=== PATIENT | male | born 1960 | race Caucasian/White ===

== ENCOUNTER 2020-10-23 04:23 | Inpatient (IN) | payer OTHER ==
[~2020-10-23] VITALS: Ht 175.3 cm; Wt 112.9 kg
[2020-10-23] MEDS: VITAMIN D PO SCH (09:00)
[2020-10-23] MEDS ORDERED: IBUP-1131 PO (14:18)
[2020-10-23] MEDS ORDERED: CETI10TA18 PO (14:18)
[2020-10-23] MEDS ORDERED: ALBU0.63 NEB (14:18)
[2020-10-23] MEDS ORDERED: TYLENOL #3 PO ONE ×2 (14:18→14:30)
[2020-10-23] MEDS ORDERED: ONDA8TAB16 PO (14:18)
[2020-10-23] MEDS ORDERED: AZEL137S4 (14:18)
[2020-10-23] MEDS ORDERED: PROM25TA10 PO (14:18)
[2020-10-23] MEDS ORDERED: LUBI24CA7 PO (14:18)
[2020-10-23] MEDS ORDERED: FAMO40TA4 PO (14:18)
[2020-10-23] MEDS ORDERED: CHOL100011 PO (14:18)
[2020-10-23] MEDS ORDERED: PARO20TA4 PO (14:18)
[2020-10-23] MEDS ORDERED: [UNRECOGNIZED DRUG - CODE] PO (14:18)
[2020-10-23] MEDS ORDERED: PROP10TA PO (14:18)
[2020-10-23] MEDS ORDERED: KETO5DRO27 OP (14:18)
[2020-10-23] MEDS ORDERED: NITR0.4T26 SL (14:18)
[2020-10-23] MEDS ORDERED: BUSP10TA PO (14:18)
[2020-10-23] MEDS ORDERED: DICL100G29 TP (14:18)
[2020-10-23] MEDS ORDERED: ASPI-929 PO (14:18)
[2020-10-23] MEDS ORDERED: CLOP75TA PO (14:18)
[2020-10-23] MEDS ORDERED: BUDE10.2 IH (14:18)
[2020-10-23] MEDS ORDERED: EPIN0.3A3 IJ (14:18)
[2020-10-23] MEDS: TRILEPTAL PO SCH (14:35)
[2020-10-23] MEDS: BUSPAR PO SCH ×2 (14:35→21:13)
[2020-10-23 15:03] VITALS: BP 151/100
--- NOTE | 2020-10-23 15:15 | NUR ---
GMAS: PLEASE SEE PAPER COPY IN PT'S CHART FOR FULL ASSESSMENT AND SCORING. Addendum: 10/23/20 at 1520 by Franchesca LANDA Amended: Links added.
--- NOTE | 2020-10-23 15:16 | NUR ---
MMSE: PLEASE SEE PAPER COPY IN PT'S CHART FOR FULL ASSESSMENT AND SCORING. Addendum: 10/23/20 at 1520 by Franchesca LANDA Amended: Links added.
--- NOTE | 2020-10-23 15:20 | NUR ---
BIOPSYCHOSOCIAL: PLEASE SEE PAPER COPY IN PT'S CHART FOR FULL ASSESSMENT. Addendum: 10/23/20 at 1520 by Franchesca LANDA Amended: Links added.
[2020-10-23] MEDS ORDERED: VENTOLIN HFA IH PRN (15:30)
[2020-10-23] MEDS ORDERED: NITROSTAT SL SCH (15:30)
[2020-10-23] MEDS ORDERED: PHENERGAN PO PRN (15:30)
[2020-10-23] MEDS ORDERED: VITAMIN D PO SCH (15:30)
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
--- NOTE | 2020-10-23 16:26 | PRM.CONS ---
Consultation Reason for Consult: Reason for Consultation: Medical management History of Present Illness History of Patient Comments 60-year-old male Being admitted to behavioral health unit for management of psych issues/suicidal thoughts. We were asked to see the patient who has past medical history of coronary artery disease, chronic back pain, asthma,? Hypertension, asthma, allergies. Patient also has chronic back issues, the main complaint now is back pain from lying in bed for a long time in the emergency room. Denies chest pain nausea vomiting abdominal pain. Denies fever or chills. Vitals & Lab Blood pressure 140/90, heart rate 70, respiratory 14, temperature 98 Head and neck normocephalic atraumatic Neck is supple no JVD Heart S1-S2 regular Abdomen soft nontender bowel sounds present Neuro awake alert moving extremities Psych unable to assess Extremities no clubbing cyanosis Review of Systems Constitutional: No: Fever, Chills Eyes: No: Pain, Vision change ENT: No: Ear pain, Ear discharge Respiratory: No: Cough, Shortness of breath Cardiovascular: No: Chest Pain, Palpitations Gastrointestinal: No: Nausea, Vomiting Genitourinary: No Dysuria, No Frequency Musculoskeletal: back pain; No: neck pain Skin: No: Jaundice Neurological: No: Weakness, Numbness Allergies: Coded Allergies: Sulfa (Sulfonamide Antibiotics) (Verified Allergy, Severe, Blisters, 10/23/20) bupropion (Verified Allergy, Severe, Blisters, 10/23/20) duloxetine (Verified Allergy, Severe, Blisters, 10/23/20) fluticasone (Verified Allergy, Severe, Blisters, 10/23/20) black pepper (Verified Adverse Reaction, Severe, 10/23/20) "STOMACH LOCKS UP" chocolate flavor (Verified Adverse Reaction, Severe, 10/23/20) "KNOTS MY STOMACH UP" ketorolac (Verified Adverse Reaction, Severe, 10/23/20) "I HAVE OUTBURTST" cinnamon (Verified Adverse Reaction, Unknown, 10/23/20) STATES IT LOCKS HIS STOMACK UP gabapentin (Verified Adverse Reaction, Unknown, 10/23/20) "JERKING AND DROP THINGS" tramadol (Verified Adverse Reaction, Unknown, 10/23/20) "I HAVE OUTBURST" Scheduled Aspirin (Aspirin Ec), 1 TAB PO DAILY Azelastine Hcl (Azelastine Hcl), 1 SPR NA BID, (Reported) Budesonide/Formoterol Fumarate (Symbicort 160-4.5 Mcg Inhaler), 1 PUFF IH BID, (Reported) Buspirone Hcl (Buspirone Hcl), 2 TAB PO TID, (Reported) Cetirizine Hcl (Cetirizine Hcl), 1 TAB PO DAILY, (Reported) Cholecalciferol (Vitamin D3) (Vitamin D3), 1,000 UNITS PO DAILY24, (Reported) Clopidogrel Bisulfate (Clopidogrel), 1 TAB PO DAILY, (Reported) Diclofenac Sodium (Diclofenac Sodium), 1 APPLIC TP BID, (Reported) Famotidine (Famotidine), 1 TAB PO HS, (Reported) Ketotifen Fumarate (Ketotifen Fumarate), 1 DROP OP BID, (Reported) Lubiprostone (Amitiza), 1 CAP PO BID, (Reported) Nitroglycerin (Nitroglycerin), 1 TAB SL PRN, (Reported) Oxcarbazepine (Oxcarbazepine), 2 TAB PO DAILY24, (Reported) Paroxetine Hcl (Paroxetine Hcl), 1 TAB PO HS, (Reported) Propranolol Hcl (Propranolol Hcl), 1 TAB PO HS, (Reported) Scheduled PRN Albuterol Sulfate (Albuterol Sulfate), 1 VIAL NEB Q4HR PRN for SHORTNESS OF BREATH, (Reported) Epinephrine (Epinephrine), 0.3 MG IJ PRN PRN for SEVERE ALLERGIC REACTIONS, (Reported) Ibuprofen (Ibuprofen), 800 MG PO TID PRN for PAIN, (Reported) Ondansetron (Ondansetron Odt), 8 MG PO Q6HR PRN for NAUSEA AND VOMITING, (Reported) Promethazine Hcl (Promethazine Hcl), 25 MG PO Q6HR PRN for NAUSEA AND VOMITING, (Reported) Assessment/Plan Assessment/Plan Plan Assessment and plan Coronary artery disease, stable Hypertension, will review and restart home meds, patient is on propranolol? Asthma continue with bronchodilators Allergies continue with allergy medications Chronic back pain, restart home meds PTSD Suicidal thoughts, management as per behavioral health specialist Will review and continue home meds Thank you for consulting us We will follow the patient with you as needed ANAND BRYSON MD Oct 23, 2020 16:26
[2020-10-23] MEDS ORDERED: ZOFRAN ODT PO PRN (16:30)
[2020-10-23] MEDS ORDERED: ZYPREXA ZYDIS SL PRN (17:00)
--- NOTE | 2020-10-23 19:35 | NUR ---
PRN MEDICATION PT REQUESTED PRN MEDICATION FOR PAIN. PRN MORPHINE 15MG WAS ADMINISTERED WITH PRN ZOFRAN 4MG.
[2020-10-23] MEDS: MORPHINE SULFATE PO PRN (19:36)
[2020-10-23] MEDS: ZOFRAN ODT SL PRN (19:36)
[2020-10-23 20:50] VITALS: BP 127/92
[2020-10-23] MEDS: ZADITOR OP SCH (21:00)
[2020-10-23] MEDS ORDERED: PAXIL PO SCH (21:00)
[2020-10-23] MEDS: SYMBICORT 160-4.5 MCG INHALER IH SCH (21:00)
[2020-10-23] MEDS: AMITIZA PO SCH (21:13)
[2020-10-23] MEDS: INDERAL PO SCH (21:13)
[2020-10-23] MEDS: PEPCID PO SCH (21:13)
[2020-10-23] MEDS: ATARAX PO PRN (22:19)
[2020-10-23] MEDS: MOTRIN PO PRN (22:20)
--- NOTE | 2020-10-23 22:20 | NUR ---
PRN MEDICATION PT REQUESTED PRN PAIN MEDICATION FOR PAIN. PRN MOTRIN 800MG WAS ADMINISTERED.
--- NOTE | 2020-10-23 22:20 | NUR ---
PRN MEDICATION PT REQUESTED PRN MEDICATION FOR ANXIETY. PRN ATARAX 50MG WAS ADMINISTERED.
--- NOTE | 2020-10-23 23:30 | NUR ---
PRN MEDICATION PT REQUESTED MEDICATION FOR PTSD RELATED THOUGHTS. PRN ZYPREXA 5MG WAS ADMINISTERED.
--- NOTE | 2020-10-23 23:30 | NUR ---
FOLLOW UP PT IS RESTING IN BED, EYES CLOSED, RESPIRATIONS EQUAL AND UNLABORED.
--- NOTE | 2020-10-24 | NUR ---
FOLLOW UP PT IS RESTING IN BED, EYES CLOSED, RESPIRATIONS EQUAL AND UNLABORED.
--- NOTE | 2020-10-24 06:10 | NUR ---
PIRP- P- ALTERATION IN MOOD AND DTS I- PROVIDE SAFE AND SUPPORTIVE ENVIRONMENT,PROVIDE MEDICATION ORDERED,OBSERVE BEHAVIORS AND Q 15 MIN. MONITORING. PROVIDE 1:1 INTERVENTION ALLOWING PT. TO EXPRESS THOUGHTS AND FEELINGS. R-PT. RATED DEPRESSION AND ANXIETY 9. ATTENDED GROUP,ATE SNACKS AND WATCHED A MOVIE WITH STAFF AND PEERS. INITIATED INTERACTION WITH PEERS AND STAFF. TOOK MEDICATION ORDERED. MEDICATION EDUCATION PROVIDED. PT. 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 PT. CAME TO THIS NURSE AND STATED HE WAS GOING TO TELL ME A SOMETHING BASED ON A TRUE STORY. HE SAID ONCE AT [facility],WHERE HIS USED TO WORK, AN ELDERLY MAN CAME TO THE NURSE AND TOLD HER HIS PENIS WAS THEN THE NEXT DAY HE CAME OUT OF HIS ROOM WITH PENIS OUT OF HIS PANTS . THE NURSE SAID SHE THOUGHT HE SAID HIS PENIS WAS . HE SAID IT IS AND THIS IS THE VIEWING. PT. 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 HE STATED IT STILL BOTHERS HIM. PT. RESTING IN BED WITH EYES CLOSED AT THIS TIME. P- WILL CONTINUE TO PROVIDE 1:1 INTERVENTION ALLOWING PT. TO EXPRESS THOUGHTS AND FEELINGS. OBSERVE BEHAVIORS AND PROVIDE MEDICATION ORDERED BY Chauncey
[2020-10-24] MEDS: SYMBICORT 160-4.5 MCG INHALER IH SCH ×2 (08:16→20:24)
[2020-10-24] MEDS: ZADITOR OP SCH ×2 (08:16→20:23)
[2020-10-24 08:22] VITALS: BP 130/77
[2020-10-24] MEDS: ASPIRIN EC PO SCH (08:27)
[2020-10-24] MEDS: VITAMIN D PO SCH (08:28)
[2020-10-24] MEDS: PLAVIX PO SCH (08:28)
[2020-10-24] MEDS: CLARITIN PO SCH (08:28)
[2020-10-24] MEDS: BUSPAR PO SCH ×3 (08:28→20:22)
[2020-10-24] MEDS: AMITIZA PO SCH ×2 (08:28→20:21)
[2020-10-24] MEDS: MORPHINE SULFATE PO PRN ×3 (08:29→20:29)
[2020-10-24] MEDS: MOTRIN PO PRN (12:54)
[2020-10-24] MEDS: TRILEPTAL PO SCH (14:48)
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
--- NOTE | 2020-10-24 15:38 | NUR ---
Psychiatrist Patient seen by Dr. Stuart via telemedicne. Paxil dose increased from 20mg to 40mg qhs.
--- NOTE | 2020-10-24 17:01 | NUR ---
PIRP P: ALTERATION IN MOOD; DTS I: Q 15 MINUTE MONITORING; PROVIDE A SAFE SUPPORTIVE ENVIRONMENT; ENCOURAGE GROUP PARTICIPATION; PROVIDE MEDICATIONS WITH EXPLANATION OF NEED AND PURPOSE; EVALUATE DEPRESSION, ANXIETY, SI/SI; OBSERVE FOR CHANGES IN MOOD AND BEHAVIOR; MONITOR % OF MEAL INTAKE; ENCOURAGE PATIENT TO IDENTIFY STRESSORS AND POSITIVE COPING SKILLS R: Q 15 MONITORING LOGGED; ROOM AND COMMON AREAS MONITORED FOR CONTRABAND, ALL EXITS AND NON-PATIENT AREAS SECURE; HAS TAKEN ALL MEDICATION ORDERED; PATIENT HAS BEEN TALKATIVE AND PLEASANT; RATES DEPRESSION 09/21, ANXIETY 10/22; DENIES SI "TODAY"; NO VOICES OR VISIONS; PATIENT'S MOOD AND BEHAVIOR HAVE BEEN COOPERATIVE AND APPROPRIATE, SPENDS TIME WITH OTHER MALE TALKING; HAS EATEN 100% AT MEAL TIME; MANAGING BACK PAIN WITH MEDICATION AND REST; IDENTIFIED STRESSORS/TRIGGERS DURING TELEMED VISIT WITH DR. ROBERSON; COPING MECHANISMS INCLUDE READING, GARDENING, VIDEO GAMES AND TELEVISION P: MONITOR THERAPEUTIC EFFECT OF INCREASED DOSE OF PAXIL; PLANNING FOR SAFE DISCHARGE HOME WHEN STABLE
[2020-10-24 19:44] VITALS: BP 133/79
[2020-10-24] MEDS: PAXIL PO SCH (20:22)
[2020-10-24] MEDS: INDERAL PO SCH (20:22)
[2020-10-24] MEDS: PEPCID PO SCH (20:22)
[2020-10-25] MEDS: ATARAX PO PRN (00:31)
--- NOTE | 2020-10-25 00:47 | NUR ---
PRN MEDICATION PT. REQUESTED MEDICATION FOR SLEEP AND ATARAX 50 MG PO PRN GIVEN AT 0031.
--- NOTE | 2020-10-25 01:30 | NUR ---
FOLLOW UP PRN ATARAX HAS BEEN EFFECTIVE. PT. RESTING WITH EYES CLOSED,SNORING.
--- NOTE | 2020-10-25 05:39 | NUR ---
PIRP- P-ALTERATION IN MOOD AND ALTERATION IN THOUGHT AND DTS I- PROVIDE 1:1 INTERVENTION ALLOWING PT. TO EXPRESS THOUGHTS AND FEELINGS,PROVIDE MEDICATION ORDERED, OBSERVE BEHAVIORS AND PROVIDE SAFE AND SUPPORTIVE ENVIRONMENT. R- PT. RATED DEPRESSION AND ANXIETY 8. DENIES SI TONIGHT. ATTENDED GROUP, SPONT. AFFECT. ATE SNACKS AND INITIATED INTERACTION WITH STAFF AND PEERS. PT. WAS OBSERVED SNORING ON MANY OCCASIONS WHEN DOING Q 15 MIN. MONITORING. PT. CAME TO NURSE'S DESK TWICE AND STATED HE HAS NOT BEEN SLEEPING TONIGHT. PT. WAS INFORMED HE HAS BEEN SNORING AND PT. STATED WELL HE WAS NOT ASLEEP. RESTING IN BED WITH EYES CLOSED AT THIS TIME. P- WILL CONTINUE TO PROVIDE MEDICATION ORDERED,PROVIDE 1:1 INTERVENTION ALLOWING PT. TO EXPRESS THOUGHTS AND FEELINGS AND OBSERVE BEHAVIORS.
[2020-10-25 07:47] VITALS: BP 115/73
[2020-10-25] MEDS: PLAVIX PO SCH (08:54)
[2020-10-25] MEDS: ASPIRIN EC PO SCH (08:54)
[2020-10-25] MEDS: VITAMIN D PO SCH (08:54)
[2020-10-25] MEDS: AMITIZA PO SCH ×2 (08:54→21:07)
[2020-10-25] MEDS: CLARITIN PO SCH (08:54)
[2020-10-25] MEDS: MORPHINE SULFATE PO PRN ×2 (08:55→22:15)
[2020-10-25] MEDS: BUSPAR PO SCH ×3 (08:55→21:07)
[2020-10-25] MEDS: ZADITOR OP SCH ×2 (09:00→21:00)
[2020-10-25] MEDS: SYMBICORT 160-4.5 MCG INHALER IH SCH ×2 (09:00→21:00)
--- NOTE | 2020-10-25 09:19 | NUR ---
TELEMED PATIENT SEEN BY GISSELLE LEDBETTER VIA TELEMED. NEW ORDERS FOR SEROQUEL 100MG PO AT HS AND TRILEPTAL BID.
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
[2020-10-25] MEDS ORDERED: TRILEPTAL PO SCH (10:00)
[2020-10-25] MEDS: TRILEPTAL PO SCH (14:19)
[2020-10-25] MEDS: MOTRIN PO PRN (14:21)
--- NOTE | 2020-10-25 16:27 | NUR ---
PIRP- P-ALTERATION IN MOOD AND ALTERATION IN THOUGHT AND DTS I- Provide medications as ordered by physicians. Encourage attendance and participation of all groups. Provide 1:1 interventions for patient to voice feelings and concerns. Observe patient for psychosis, decreased sleep, auditory and visual hallucinations. Monitor the effectiveness of medications prescribed. R: Patient has taken all medications as ordered. Today Seroquel was started and Trileptal was increased. Patient continues to complain of not sleeping well. He denies suicidal ideation but rates depression 10, Anxiety /. He talks about flash backs from the that cause him anxiety and depression. he has [participated in groups and has played mNectar with staff this afternoon. He is socially appropriate, cooperative and pleasant. he is hopeful that the medication changes will make him feel better. He denies auditory/visual hallucinations and is not paranoid but is seeking help. P: Continue current plan of care. Monitor the effectiveness of medication changes.
[2020-10-25 20:00] VITALS: BP 153/81
[2020-10-25] MEDS: INDERAL PO SCH (21:07)
[2020-10-25] MEDS: PEPCID PO SCH (21:07)
[2020-10-25] MEDS: SEROQUEL PO SCH (21:07)
[2020-10-25] MEDS: PAXIL PO SCH (21:08)
[2020-10-25] MEDS: ZOFRAN ODT SL PRN (23:30)
[2020-10-26] MEDS ORDERED: BENADRYL PO ONE
[2020-10-26] MEDS ORDERED: BENADRYL PO PRN (00:30)
--- NOTE | 2020-10-26 02:39 | NUR ---
AT APPROXIMATELY 2315 PT. C/O DIZZINESS, NAUSEA,WILL,SINUS SWELLING IN FACE ,STUFFY NOSE AND LT. PALM OF HIS HAND TINGLING. NO PAIN. HE STATED HE FEELS HE IS POSSIBLY HAVING A REACTION TO SEROQUEL,THAT WAS STARTED TONIGHT. PT. STATED HE VOMITED A SMALL AMOUNT. ZOFRAN 4MG PO PRN GIVEN AT 2330. PT. AT 2355 PT. STATED HE IS FEELING BETTER BUT STATES HE FEELS LIKE HE IS HAVING A REACTION TO MEDICATION. DR. SIMPSON NOTIFIED ,ORDER FOR BENADRYL 50 MG PO 1 TIME ORDER AND BENADRYL 50 MG PO Q6 HOURS PRN RECEIVED AND THE ONE TIME ORDER WAS GIVEN. PT. REST IN BED WITH EYES CLOSED,SNORING. AT 0200 PT. REPORTED HE WAS OK NOW. RESTING IN BED WITH EYES CLOSED SNORING AT THIS TIME.
--- NOTE | 2020-10-26 04:35 | NUR ---
PIRP- P- ALTERATION IN MOOD AND DTS I- PROVIDE SAFE AND SUPPORTIVE ENVIRONMENT,PROVIDE MEDICATION ORDERED,PROVIDE 1:1 INTERVENTION ALLOWING PT. TO EXPRESS THOUGHTS AND FEELINGS. OBSERVE BEHAVIORS. R- PT. RATED DEPRESSION 9 AND ANXIETY 8. DENIES SI TONIGHT. ATTENDED GROUP,ATE SNACKS,INITIATED INTERACTION WITH PEERS AND STAFF. TOOK MEDICATION ORDERED. TOOK SHOWER. PT. HAS NOT REPORTED FLASHBACKS THIS SHIFT. RECEIVED PRN MEDICATION PREVIOUSLY CHARTED. RESTING IN BED WITH EYES CLOSED AT THIS TIME. P- WILL CONTINUE TO PROVIDE MEDICATION ORDERED,OBSERVE BEHAVIORS,PROVIDE 1:1 INTERVENTION ALLOWING PT. TO EXPRESS THOUGHTS AND FEELINGS. PROVIDE SAFE AND SUPPORTIVE ENVIRONMENT.
[2020-10-26 07:50] VITALS: BP 119/61
--- NOTE | 2020-10-26 08:25 | NUR ---
HOSPITALIST DR CAR NOTIFIED BY THIS RN DUE TO PATIENT ASKING FOR MORPHINE ON A REGULAR BASIS FOR PAIN IN NECK AND BACK. CONSISTENTLY RATING PAIN 9/10. BEHAVIOR DOES NOT APPEAR TO MATCH NUMBER STATED. DR. CAR SPOKE TO PATIENT IN PRESENCE OF THIS RN. PATIENT VERBALIZED AGREEMENT OF PLAN TO DC MORPHINE, USING IBUPROFEN FOR PAIN INSTEAD. NO PRESCRIPTION WOULD BE GIVEN FOR DC, PER DR. CAR TO PATIENT. PATIENT AGREED, HE WOULD CONTINUE WITH "[facility] SPINE" FOR HIS CHRONIC PAIN NEEDS. Addendum: 10/26/20 at 0847 by Sheri Lucio RN -[facility] RN PATIENT STATED FURTHER, "I HAVE MORPHINE AT HOME THAT IS 3 MONTHS OLD." I ONLY USE IT FOR 3 DAYS AND THE I STOP." "I USE IT WHEN MY BACK GETS BAD." THIS IS DAY 3 OF ADMISSION, PATIENT STATES HE WOULD LIKE TO GO WITH "IBUPROFEN." PATIENT SHARED WITH HOSPITALIST, "I DO NOT HAVE AN ADDICTIVE PERSONALITY." "I QUIT SMOKING COLD TURKEY."
[2020-10-26] MEDS: SYMBICORT 160-4.5 MCG INHALER IH SCH ×2 (08:50→21:00)
[2020-10-26] MEDS: ZADITOR OP SCH ×2 (08:54→21:00)
[2020-10-26] MEDS: ASPIRIN EC PO SCH (08:55)
[2020-10-26] MEDS: CLARITIN PO SCH (08:55)
[2020-10-26] MEDS: BUSPAR PO SCH ×3 (08:55→21:20)
[2020-10-26] MEDS: VITAMIN D PO SCH (08:55)
[2020-10-26] MEDS: PLAVIX PO SCH (08:55)
[2020-10-26] MEDS: TRILEPTAL PO SCH ×2 (08:55→21:17)
[2020-10-26] MEDS: AMITIZA PO SCH ×2 (08:55→21:18)
[2020-10-26] MEDS: MOTRIN PO PRN (08:56)
[2020-10-26] MEDS ORDERED: TRILEPTAL PO SCH ×2 (09:00→10:00)
--- NOTE | 2020-10-26 11:28 | PRM.PN ---
Mood: good, after getting some sleep, Sleep: 7.75 hours, ate breakfast returned to bed Appetite: it's fine eating more here than I have for ages Suidical thoughts: not in last 12 hours, last night- hopelessness Homicidal thoughts: denies Recent stressors: reports- 20 minutes after seroquel - lightheaded and sick, Family support: talked to , supportive Aggressive Behavior: denies not present Ability to Perform ADL'sc: on his own Psychotic sympstoms: nightmares? no but could not breathe Manic Symptoms: pre-occuped talking to another [employer] Living situation: at home and kids, Family,PT,Surgical,&Current HX: (1) PTSD (post-traumatic stress disorder) (2) MDD (major depressive disorder), recurrent episode, moderate Anxity Symptoms: was having some anxiety attacks last night Anger/Irritablility: denies Muscle Strength & Tone: WNL Gait & Station: Normal stance/post/gait Appearance: Well groomed/hygience Mood & Affect: Euthymic/appr/congruent Orientation: Fully oriented per interv Attention/Concentration: Fair attention, Fair concentration Speech: Reg rate/vol/rhyth/prosod Judgement/Insight: Fair judgement, Fair insight Thought Process: Circumferential Language: Paraguayan Thought content/Abnormal/Psych: None/normal Fund of Knowledge: WNL Associations: WNL/Normal Associations Constitutional: None Neurological: None Psychiatric: Depressed, Anxious [place] I: mdd, ptsd Assessment/Plan Assessment/Plan Plan Nursing: snoring, sleeping hard even after sleeping full night reports allergy sx, left hand numbness, sinuses swelling, threw up, but said best sleep (benadryl at midnight) he was taken off morphine, he did not take it regularly Vital Signs Date Time Temp Pulse Resp B/P (MAP) Pulse Ox O2 Delivery O2 Flow Rate FiO2 10/26/20 07:50 97.9 50 17 119/61 (80) 92 Room Air Current Medications Medications (Trade) Dose Ordered Sig/Edgar PRN Reason Start Time Stop Time Status Last Admin Albuterol Sulfate (Ventolin Hfa) 2 inh Q4HR PRN SHORTNESS OF BREATH 10/23/20 15:30 11/22/20 15:29 Aspirin (Aspirin Ec) 81 mg DAILY 10/24/20 09:00 11/23/20 08:59 10/26/20 08:55 Budesonide/ Formoterol Fumarate (Symbicort 160-4.5 Mcg Inhaler) 1 inh BID 10/23/20 21:00 11/22/20 20:59 10/26/20 08:50 Buspirone HCl (Buspar) 20 mg TID 10/23/20 15:00 11/22/20 14:59 10/26/20 08:55 Clopidogrel Bisulfate (Plavix) 75 mg DAILY 10/24/20 09:00 11/23/20 08:59 10/26/20 08:55 Diphenhydramine HCl (Benadryl) 50 mg Q6HR PRN ALLERGY 10/26/20 00:30 11/25/20 00:29 Famotidine (Pepcid) 20 mg HS 10/23/20 21:00 11/22/20 20:59 10/25/20 21:07 Hydroxyzine HCl (Atarax) 50 mg Q6HR PRN ANXIETY/SLEEP 10/23/20 17:00 11/21/20 17:00 10/25/20 00:31 Ibuprofen (Motrin) 800 mg TID PRN PAIN 10/23/20 15:30 11/22/20 15:29 10/26/20 08:56 Loratadine (Claritin) 10 mg DAILY 10/24/20 09:00 11/23/20 08:59 10/26/20 08:55 Lubiprostone (Amitiza) 24 mcg BID 10/23/20 21:00 11/22/20 20:59 10/26/20 08:55 Nitroglycerin (Nitrostat) 0.4 mg PRN 10/23/20 15:30 11/22/20 15:29 Olanzapine (Zyprexa Zydis) 5 mg Q6HR PRN PSYCHOSIS 10/23/20 17:00 11/21/20 17:00 10/23/20 23:27 Ondansetron HCl (Zofran Odt) 4 mg TID PRN NAUSEA / VOMITING 10/23/20 16:30 11/21/20 16:30 10/25/20 23:30 Oxcarbazepine (Trileptal) 150 mg 0900 10/26/20 09:00 11/25/20 08:59 10/26/20 08:55 Oxcarbazepine (Trileptal) 600 mg HS 10/26/20 21:00 11/22/20 14:29 Paroxetine HCl (Paxil) 40 mg HS 10/24/20 21:00 11/23/20 20:59 10/25/20 21:08 Promethazine HCl (Phenergan) 25 mg Q6HR PRN NAUSEA AND VOMITING 10/23/20 15:30 11/22/20 15:29 Propranolol HCl (Inderal) 10 mg HS 10/23/20 21:00 11/22/20 20:59 10/25/20 21:07 Quetiapine Fumarate (Seroquel) 100 mg HS 10/25/20 21:00 11/24/20 20:59 10/25/20 21:07 Summary: He had reaction last night but is very grateful for finally sleeping and would like to try quetiapine once again with benadryl. past meds: duloxetine was the only one, grit teeth so bad they cracked, lists as sensitivity gabapentin (jerk) bupropion (does not recall side effect) admits was having food allergies later believes he was on seroquel and believe it took his sex drive away (not issue now as has depression no sex in 2 years) prazosin (took me off of it- it did not work) xanax- used to work, understands the federal changes and not be prescribed anymore CONSENT: Consent was obtained by patient for telemedicine visit. Consent was ob tained for the presence of staff member throughout encounter. Privacy was maintained throughout encounter PLAN: 1. CONTINUE BEHAVIORAL HEALTH MANAGEMENT. 2. stop propranolol he does not know purpose, [facility], not his normal cardiac meds, rule out as adding to cough/side effects of last night- he reports maybe having too many meds at night, 3. ALL PATIENT QUESTIONS ANSWERED RELATED TO MEDICATIONS, PLAN OF CARE, AND EXPECTED OUTCOMES. 4. SAFETY PLAN DISCUSSED. 5. Please give Benadryl 25mg at hs, about 20 minutes prior to quetiapine- rule out some was fear/hypervigilance and combination of last night. LASHAY NIETO AQUACULTURE FARMER Oct 26, 2020 11:28
--- NOTE | 2020-10-26 12:33 | NUR ---
TELEMED PATIENT SEEN BY GISSELLE LEDBETTER VIA TELEMED. NEW ORDERS TO TAKE BENADRYL WITH THE SEROQUEL AT BEDTIME.
--- NOTE | 2020-10-26 15:49 | NUR ---
DISCHARGE PATIENT DISCHARGED FROM UNIT AT 1500. TO THE EXIT AMBULATORY WITH SALOMON CONNORS IN ATTENDANCE TO THE EXIT, PIPE LINE INSPECTOR FROM [facility] ARRIVED TO TRANSPORT PATIENT. PRESCRIPT[facility]ED [facility] TO [facility]. PATIENT TO FOLLOW UP WITH [facility] STABILIZATION; MEDICAL RECORD FAXED. FOLLOW UP APPOINTMENT WITH PCP NOTED IN PATIENT'S DISCHARGE PACKET WHICH SHE TOOK WITH HER ALONG WITH ALL OF HER BELONGINGS. MEDICAL RECORDS FAXED TO PCP.
--- NOTE | 2020-10-26 16:42 | NUR ---
PIRP P: ALTERATION IN MOOD; DTS I: Q 15 MINUTE MONITORING; PROVIDE A SAFE SUPPORTIVE ENVIRONMENT; ENCOURAGE GROUP PARTICIPATION; PROVIDE MEDICATIONS WITH EXPLANATION OF NEED AND PURPOSE; EVALUATE DEPRESSION, ANXIETY, SI/SI; OBSERVE FOR CHANGES IN MOOD AND BEHAVIOR; MONITOR % OF MEAL INTAKE; ENCOURAGE PATIENT TO IDENTIFY STRESSORS AND POSITIVE COPING SKILLS R: Q 15 MONITORING; ALL EXITS AND NON-PATIENT AREAS SECURE; HAS TAKEN ALL MEDICATION ORDERED; PATIENT HAS BEEN TALKATIVE AND PLEASANT; PARTICIPATED IN AFTERNOON GROUPS. PATIENT WENT BACK TO [facility] AFTER BREAKFAST AND SLEPT UNTIL LUNCH. STATES, "IT FEELS GOOD TO SLEEP. I HAVE SLEPT IN MONTHS." RATES DEPRESSION /10, ANXIETY /10; DENIES SI "TODAY"; NO VOICES OR VISIONS; PATIENT'S MOOD AND BEHAVIOR HAVE BEEN COOPERATIVE AND APPROPRIATE, SPENDS TIME WITH OTHER MALE TALKING; HAS EATEN 100% AT MEAL TIME. P: MONITOR MEDICATION ADJUST: BENADRYL TO BE GIVEN WITH SEROQUEL.
[2020-10-26 19:47] VITALS: BP 124/85
[2020-10-26] MEDS: BENADRYL PO SCH (20:36)
[2020-10-26] MEDS: PEPCID PO SCH (21:00)
[2020-10-26] MEDS: SEROQUEL PO SCH (21:17)
[2020-10-26] MEDS: PAXIL PO SCH (21:17)
--- NOTE | 2020-10-27 00:56 | NUR ---
pirp- P- ALTERATION IN MOOD AND DTS I- OBSERVE BEHAVIORS,PROVIDE SAFE AND SUPPORTIVE ENVIRONMENT ,PROVIDE 1:1 INTERVENTION ALLOWING PT. TO EXPRESS THOUGHTS AND FEELINGS AND PROVIDE MEDICATION ORDERED. I- PT. RATED DEPRESSION AND ANXIETY 6. DENIES SI TONIGHT. PT. ATTENDED GROUP,ATE SNACKS AND INITIATED INTERACTION WITH PEERS AND STAFF. HE STATED HIS GOAL FOR TODAY WAS TO WORK ON GETTING DEPRESSION BETTER AND SLEEPING BETTER. HE STATES HE FEELS BETTER BECAUSE HE GOT MORE SLEEP. PT. RATED PAIN 7 BUT STATED HE DID NOT WANT PAIN MEDICATION. TOOK MEDICATION ORDERED.RESTING IN BED WITH EYES CLOSED,SNORING AT THIS TIME. P- WILL CONTINUE TO PROVIDE SAFE AND SUPPORTIVE ENVIRONMENT,OBSERVE BEHAVIORS,PROVIDE MEDICATION ORDERED. PROVIDE 1:1 INTERVENTION ALLOWING PT. TO EXPRESS THOUGHTS AND FEELINGS.
[2020-10-27] MEDS: ZADITOR OP SCH ×2 (08:34→21:00)
[2020-10-27 08:45] VITALS: BP 119/86
--- NOTE | 2020-10-27 08:50 | PRM.PN ---
Mood: today it's great, yesterday fairly well Sleep: 7 hours Appetite: it's pretty good, eaten more last 3 days, than 3 mos Suidical thoughts: hopeless only little bit, denies si Homicidal thoughts: denies Recent stressors: says supposed to lose weight Family support: told family not to visit, over hour drive Aggressive Behavior: denies Ability to Perform ADL'sc: does on his own Psychotic sympstoms: denies, ah paranoia denies Manic Symptoms: denies being hyperactive Living situation: at home with , no worries Family,PT,Surgical,&Current HX: (1) MDD (major depressive disorder), recurrent episode, moderate (2) PTSD (post-traumatic stress disorder) Anxity Symptoms: little bit yesterday, one little time heart jumped a bit Anger/Irritablility: denies Muscle Strength & Tone: WNL Gait & Station: Normal stance/post/gait Appearance: Well groomed/hygience Mood & Affect: Euthymic/appr/congruent Orientation: Fully oriented per interv Attention/Concentration: Fair attention, Fair concentration Speech: Reg rate/vol/rhyth/prosod Judgement/Insight: Fair judgement, Fair insight Thought Process: Linear/goal directed Language: Bengali Thought content/Abnormal/Psych: None/normal Fund of Knowledge: WNL Associations: WNL/Normal Associations Constitutional: None Neurological: None Psychiatric: Depressed, Anxious [place] I: MDD, PTSD Assessment/Plan Assessment/Plan Plan Nursing: slept in this morning, nursing reported no side effects to quetiapine last night, has been appropriate, socializes with others, participates in groups oriented, Patient: it was great, benadryl prior to quetiapine was good, no side effects, only up twice, nightmares I did not have any, nothing, does not remember a dream last night Vital Signs Date Time Temp Pulse Resp B/P (MAP) Pulse Ox O2 Delivery O2 Flow Rate FiO2 10/27/20 08:45 98.0 57 16 119/86 (97) 92 Room Air Current Medications Medications (Trade) Dose Ordered Sig/Edgar PRN Reason Start Time Stop Time Status Last Admin Aspirin (Aspirin Ec) 81 mg DAILY 10/24/20 09:00 11/23/20 08:59 10/26/20 08:55 Clopidogrel Bisulfate (Plavix) 75 mg DAILY 10/24/20 09:00 11/23/20 08:59 10/26/20 08:55 Diphenhydramine HCl (Benadryl) 25 mg 2030 10/26/20 20:30 11/25/20 20:29 10/26/20 20:36 Diphenhydramine HCl (Benadryl) 50 mg Q6HR PRN ALLERGY 10/26/20 00:30 11/25/20 00:29 Loratadine (Claritin) 10 mg DAILY 10/24/20 09:00 11/23/20 08:59 10/26/20 08:55 Oxcarbazepine (Trileptal) 150 mg 0910/26/20 09:00 11/25/20 08:59 10/26/20 08:55 Oxcarbazepine (Trileptal) 600 mg HS 10/26/20 21:00 11/22/20 14:29 10/26/20 21:17 Paroxetine HCl (Paxil) 40 mg HS 10/24/20 21:00 11/23/20 20:59 10/26/20 21:17 Quetiapine Fumarate (Seroquel) 100 mg HS 10/25/20 21:00 11/24/20 20:59 10/26/20 21:17 Summary: Made plans for discharge this day although patient then overwhelmed with anxiety, not wanting to leave today, delayed until tomorrow. Plans to go and see my brother in [place], was supposed to have left Sunday, he agrees to stay home for a few days, will wait for [place] supply of meds to be mailed to him is very hopeful for this trip he had been delaying, past meds: duloxetine was the only one, grit teeth so bad they cracked, lists as sensitivity gabapentin (jerk) bupropion (does not recall side effect) admits was having food allergies later believes he was on seroquel and believe it took his sex drive away (not issue now as has depression no sex in 2 years) prazosin (took me off of it- it did not work) xanax- used to work, understands the federal changes and not be prescribed anymore CONSENT: Consent was obtained by patient for telemedicine visit. Consent was obtained for the presence of staff member throughout encounter. Privacy was maintained throughout encounter PLAN: 1. Discharge- planned for tomorrow- [facility] - please do lipids and hba1c due to being on atypical, we do repeat EKG prior to discharge. 2. Increase socializing or volunteering, he is a social being, covid 10 social restrictions and detention added to depression 3. ALL PATIENT QUESTIONS ANSWERED RELATED TO MEDICATIONS, PLAN OF CARE, AND EXPECTED OUTCOMES. 4. SAFETY PLAN DISCUSSED. LASHAY NIETO NP Oct 27, 2020 08:50
[2020-10-27] MEDS: SYMBICORT 160-4.5 MCG INHALER IH SCH ×2 (09:38→21:00)
[2020-10-27] MEDS: ASPIRIN EC PO SCH (09:39)
[2020-10-27] MEDS: CLARITIN PO SCH (09:39)
[2020-10-27] MEDS: AMITIZA PO SCH ×2 (09:39→21:15)
[2020-10-27] MEDS: PLAVIX PO SCH (09:39)
[2020-10-27] MEDS: VITAMIN D PO SCH (09:39)
[2020-10-27] MEDS: BUSPAR PO SCH ×3 (09:39→21:15)
[2020-10-27] MEDS: TRILEPTAL PO SCH ×2 (09:39→21:16)
[2020-10-27] MEDS ORDERED: OXCA150T19 PO (09:40)
[2020-10-27] MEDS ORDERED: DIPH25CA PO (09:40)
[2020-10-27] MEDS ORDERED: QUET100T4 PO (09:40)
--- NOTE | 2020-10-27 10:24 | PCM.EKG ---
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
--- NOTE | 2020-10-27 11:47 | NUR ---
RX RX SCRIPTS FAXED TO [facility] AT [phone].
[2020-10-27] MEDS ORDERED: CEPHULAC PO PRN (15:00)
--- NOTE | 2020-10-27 17:56 | NUR ---
PIRP P: ALTERATION IN MOOD I: Q15 MIN MONITORING, ASSESS REASONS FOR DEPRESSION/ANXIETY, PROVIDE 1:1 TO ENCOURAGE EXPRESSION OF FEELINGS, PROVIDE TASK-ORIENTED ACTIVITIES, GIVE CLEAR AND SIMPLE INSTRUCTIONS, PROVIDE SAFE AND SUPPORTIVE ENVIRONMENT, REINFORCE MEDICATION EDUCATION R: PT HAS BRIGHT, PLEASANT AFFECT THROUGHOUT SHIFT. PARTICIPATES IN GROUP ACTIVITIES, INITIATES INTERACTION WITH STAFF AND PEERS, AND TAKES MEDICATIONS ORDERED. PATIENT RATES DEPRESSION 4/10, DENIES FEELINGS OF ANXIETY, DENIES SUICIDAL/HOMICIDAL IDEATION. NO HALLUCINATIONS OR DELUSIONS NOTED. PATIENT REPORTS HAVING "A LITTLE BIT OF HOPELESS THOUGHTS," BUT THAT MOOD HAS "DEFINITELY IMPROVED." PATIENT WAS INITIALLY OKAY WITH DISCHARGING HOME TODAY, BUT BEGAN TO FEEL APPREHENSIVE MID MORNING. DISCHARGE PLANS DELAYED FOR TOMORROW, PATIENT AGREEABLE WITH PLAN. P: USE CALM REASSURING APPROACH, ENCOURAGE EXPRESSION OF FEELINGS
[2020-10-27 19:15] VITALS: BP 119/75
[2020-10-27] MEDS: BENADRYL PO SCH (20:34)
[2020-10-27] MEDS: PEPCID PO SCH (21:00)
[2020-10-27] MEDS: SEROQUEL PO SCH (21:15)
[2020-10-27] MEDS: PAXIL PO SCH (21:16)
--- NOTE | 2020-10-28 01:03 | NUR ---
P.I.R.P. P: DTS; ALTERATION IN MOOD I: EVERY 15 MINUTE CHECKS, PROVIDE A SAFE SECURE ENVIRONMENT; ASSESS MOOD; ASSESS FOR DEPRESSION, ANXIETY, SI/HI, PSYCHOSIS PROVIDE MEDICATIONS ORDERED PROVIDE EDUCATION REFERENCE MEDICATIONS. PROVIDE 1:1 INTERVENTION TO ALLOW PATIENT TO EXPRESS FEELINGS AND THOUGHTS, PROVIDE TASK ORIENTED GROUP ACTIVITY. ENCOURAGE PARTICIPATION IN GROUP. R. PATIENT TOOK MEDS ORDERED, ATTENDED GROUP ACTIVITY, HAS ENJOYED TALKING WITH FELLOW MARINE IN GROUP, FEELS HE HAS HELPED THIS PERSON AND THAT HELPS HIM PER PATIENT. PATIENT DENIES SUICIDAL IDEATION, ANXIETY 6, DEPRESSION 4. DENIES HALLUCINATIONS. P. CONTINUE CURRENT PLAN OF CARE
[2020-10-28 08:20] VITALS: BP 150/96
[2020-10-28] MEDS: TRILEPTAL PO SCH (08:27)
[2020-10-28] MEDS: ASPIRIN EC PO SCH (08:27)
[2020-10-28] MEDS: VITAMIN D PO SCH (08:27)
[2020-10-28] MEDS: PLAVIX PO SCH (08:27)
[2020-10-28] MEDS: AMITIZA PO SCH (08:27)
[2020-10-28] MEDS: CLARITIN PO SCH (08:28)
[2020-10-28] MEDS: BUSPAR PO SCH (08:28)
[2020-10-28] MEDS: MOTRIN PO PRN (08:28)
[2020-10-28] MEDS: SYMBICORT 160-4.5 MCG INHALER IH SCH (08:29)
[2020-10-28] MEDS: ZADITOR OP SCH (08:29)
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
--- NOTE | 2020-10-28 09:28 | NUR ---
TELEMED PT SEEN BY KYRIE ROBERSON PSYCHIATRIST VIA TELEMED, ORDERS RECEIVED TO DISCHARGE PT.
--- NOTE | 2020-10-28 12:00 | NUR ---
DISCHARGE EDUCATION PT GIVEN EDUCATION ON BENADRYL,OXCARBAZEPINE,DEPRESSION, AND PTSD, PT VERBALIZED UNDERSTANDING OF THE EDUCATION. [facility] PT VERBALIZED UNDERSTANDING.
--- NOTE | 2020-10-28 12:49 | NUR ---
Discharge: Patient discharged from [facility]. Patient ambulated off unit escorted by Yolanda Bone RN. Patient's will be transporting patient back home. Patient left [facility] with all belongings. [facility].
[2020-10-28 12:56] VITALS: BP 150/96
== END 2020-10-28 12:50 | disposition home or self-care (01) | DRG 885 ==
LOC: EEVIPCON → GP 11:49 → EDPENDDISTM 10-28 12:50
PROVIDERS: ADMIT Psychiatry & Neurology Psychiatry; ATTEND Psychiatry & Neurology Psychiatry
DX: F33.1 Major depressive disorder, recurrent, moderate (principal); R45.851 Suicidal ideations; F43.10 Post-traumatic stress disorder, unspecified; I25.10 Atherosclerotic heart disease of native coronary artery without angina pectoris; G89.29 Other chronic pain; F41.9 Anxiety disorder, unspecified; I10 Essential (primary) hypertension; J45.909 Unspecified asthma, uncomplicated; M54.9 Dorsalgia, unspecified; G43.909 Migraine, unspecified, not intractable, without status migrainosus; I25.2 Old myocardial infarction; Z88.2 Allergy status to sulfonamides; Z88.8 Allergy status to other drugs, medicaments and biological substances; Z79.82 Long term (current) use of aspirin; Z79.51 Long term (current) use of inhaled steroids; Z88.1 Allergy status to other antibiotic agents
CPT/HCPCS: 36415; 80061; 83036; 93005; 97150; 97165; G0378; J3490; J7611; Q0163